=== PATIENT | male | born 2000 | race Caucasian/White ===

== ENCOUNTER 2018-04-20 04:00 | Day surgery (SDC) | payer OTHER ==
[~2018-04-20] VITALS: Ht 190.5 cm; Wt 127.9 kg
[~2018-04-20 04:00] MED LIST: ACET-1966 PO; KEFLEX PO; NAPR220C12 PO
[2018-04-20] MEDS ORDERED: LIDOCAINE MPF 1% 5 ML VIAL ONE (08:15)
[2018-04-20] MEDS ORDERED: DEXAMETHASONE SOD 4 MG/ML VIAL ONE (08:15)
[2018-04-20] MEDS ORDERED: ONDANSETRON 4 MG/2 ML VIAL ONE (08:15)
[2018-04-20] MEDS ORDERED: PROPOFOL EMUL(*) 10MG/ML 20 ML 20 ML ONE ×2 (08:15→09:07)
[2018-04-20] MEDS ORDERED: METOCLOPRAMIDE 10 MG/2 ML SDV ONE (08:15)
[2018-04-20 08:39] VITALS: BP 122/86
[2018-04-20] MEDS ORDERED: NORMOSOL R SOLN(*) 1000 ML BAG 1,000 ML IV PRN (08:50)
[2018-04-20] MEDS ORDERED: MIDAZOLAM 2 MG/2 ML VIAL IVP PRN (08:50)
[2018-04-20] MEDS ORDERED: LIDOCAINE/SOD BICARB 8.4% SYR ID ONE (08:50)
[2018-04-20] MEDS ORDERED: FAMOTIDINE 20 MG TAB PO ONE (08:50)
[2018-04-20] MEDS ORDERED: fentaNYL CITR 100 MCG/2 ML AMP ONE (09:06)
[2018-04-20] MEDS ORDERED: OFLOXACIN 0.3% OP SOLN 5ML BTL ONE (09:34)
[2018-04-20] MEDS ORDERED: OFLO5DRO45 OT (10:40)
[2018-04-20 10:45] VITALS: BP 130/81
--- NOTE | 2018-04-20 11:02 | OPERATIVE REPORT 1 ---
EVENT DATE: April 20, 2018 SURGEON: Ej Thomas Jr., MD ANESTHESIOLOGIST: Mikey Jurado MD ANESTHESIA: LMA PROCEDURE PERFORMED Left myringoplasty with Biodesign patch. PREOPERATIVE DIAGNOSIS Left tympanic membrane perforation. POSTOPERATIVE DIAGNOSIS Left tympanic membrane perforation. INDICATIONS Please refer to the preoperative note. DESCRIPTION OF PROCEDURE The patient was positively identified in the preoperative area. Risks and benefits were explained including, but not limited to, tympanic membrane perforation and those associated with anesthesia. He acknowledged understanding of those risks. He was then brought back to the operating room, laid supine on the operating table and anesthesia was administered. Once asleep, the patient was positioned, prepped and draped in the usual sterile fashion. The microscope was brought into place. Speculum was placed in the left external auditory canal and the tympanic membrane visualized. A perforation was noted in the superior aspect into approximately 10% of the tympanic membrane. The margins were freshened with a pick. The Biodesign graft was placed. Floxin drops were placed. The patient was then returned to Anesthesia for emergence. ESTIMATED BLOOD LOSS Negligible. COMPLICATIONS No complications. MTDElaine
[2018-04-20 11:13] VITALS: BP 122/81
[2018-04-20 11:16] VITALS: BP 123/83
== END 2018-04-20 10:45 | disposition home or self-care (01) ==
LOC: OR 04:00
PROVIDERS: ATTEND Otolaryngology
DX: H72.92 Unspecified perforation of tympanic membrane, left ear (principal)
CPT/HCPCS: 69610; C1763; J2704; J3010; J1100; J2001; J2405; J2765

== ENCOUNTER 2018-07-12 20:14 | Emergency (ER) | payer OTHER ==
[~2018-07-12 20:14] MED LIST changes: +OFLO5DRO45 OT
[2018-07-12 20:21] VITALS: BP 142/111
--- NOTE | 2018-07-12 20:38 | ER Report ---
History and Physical Time Seen By MD: 20:38 Hx. of Stated Complaint: ingrown big toenail on rt foot HPI/ROS CHIEF COMPLAINT: ingrown toenail HISTORY OF PRESENT ILLNESS: 18 year old male presents to ER for right big toe pain. Patient reports he believes it is an ingrown toenail. Patient reports a sharp pain to the medial aspect of the right great big toe, medial to the nail. Pain is worse with walking and pressure to toe, reports 9 out of 10 pain at its worse. Pain decreases when sitting or lying down; reports 3 out of 10 pain at its best. Patient reports pain has been present for 1 week with bleeding and pus coming from site for 3 days. Patient reports hx of repeated ingrown toenails to the lateral aspects of bilateral great big toes approximately 10-12 years ago. Reports he had the nail bed burned and has not had a problem with ingrown toenails since that time. ROS: Constitutional: Denies fatigue, fever. CV: Denies chest pain Resp: Denies SOB MSK: Reports pain, pus, and bleeding to right great toe Allergies: Coded Allergies: No Known Drug Allergies (Verified , 07/12/18) Home Meds Active Scripts Cephalexin 500 Mg Tab (KEFLEX 500 MG TAB) 500 Mg Tablet, 500 MG PO Q6H, #28 TAB Prov:JARON FLORES [employer] 07/12/18 Reported Medications Naproxen Sodium (ALEVE) Unknown Strength Capsule, PO TID PRN for PAIN, CAPSULE 04/02/18 Acetaminophen (TYLENOL) Unknown Strength Tablet, PO, TAB 04/02/18 Past Medical/Surgical History Patient has a past medical history of ruptured eardrum. Patient has surgical history of knee surgery. Patient has a family medical history of CAD, stroke. Reviewed Nurses Notes: Yes Hx Smoking: No Smoking Status: Never Smoker Hx Substance Use Disorder: No Hx Alcohol Use: No Constitutional Vital Sign - Last 24 Hours 07/12/18 20:21 Temp 98.9 Pulse 106 Resp 14 B/P (MAP) 142/111 Pulse Ox 94 O2 Delivery Room Air Physical Exam General appearance: Alert no distress. Respiratory: Chest is non tender, lungs are clear to auscultation. Cardiac: Regular rate and rhythm MSK: Erythema and edema noted to medial aspect of right great toe- medial to the nail bed. Dried blood noted in the medial aspect of the nail bed. Patient reports 9 out of 10 pain with palpation to the medial aspect of right great toe. Denies pain with palpation of the MTP joint and DP joint. Nail bed without s/s of infection. [DIFFERENTIAL DIAGNOSIS: After history and physical exam differential diagnosis was considered for ingrown toenail, toenail infection Medical Decision Making ED Course/Re-evaluation ED Course Patient was admitted to exam room, history and physical were obtained. Differential diagnoses were considered. On examination lungs are clear, heart is regular. Patient does have erythema along the medial aspect of the right great toe. Is tender to touch. Patient would like to have a partial nail avulsion. That was performed as described below. Patient tolerated procedure well. We will go ahead and discharge him home at this time. He did have a dressing placed with bacitracin, Telfa, Kerlix and Coban. Patient tolerated procedure well. He states Tylenol ibuprofen as need for pain. Patient verbalized understanding and agreement plan. Procedure: Partial avulsion of ingrown toenail With patient consent the proximal aspect of the right great toe was cleaned with alcohol and then a digital block was performed using 5 cc of 1% lidocaine and 5 cc of 0.5% Marcaine. The patient stated that he was adequately anesthetized scissors were taken and a cut through the toenail was performed to the medial quarter of the toenail. Then the toenail was gripped with forceps and removed. Patient did have significant ingrown toenail. He was then dressed with bacitracin, Telfa pad, Kerlix and Coban. Patient tolerated procedure well we will go ahead and discharge him home this time. He will be given a dose of Keflex here, and a dose for the morning and then a prescription was sent into his pharmacy. Decision to Disposition Date: Jul 12, 2018 Decision to Disposition Time: 21:30 Depart Departure Latest Vital Signs Vital Signs Date Time Temp Pulse Resp B/P (MAP) Pulse Ox O2 Delivery O2 Flow Rate FiO2 07/12/18 20:21 98.9 106 14 142/111 94 Room Air Impression: Primary Impression: INGROWING NAIL Condition: Improved Disposition: HOME OR SELF-CARE Referrals: DOUGLAS COLE (PCP) New Scripts Cephalexin 500 Mg Tab (KEFLEX 500 MG TAB) 500 Mg Tablet 500 MG PO Q6H, #28 TAB Prov: JARON FLORES 07/12/18 Patient Instructions: Ingrown Nail (ED) Additional Instructions: Limit activity by pain. Get plenty of rest. You may change the dressing as needed. Take Tylenol or Ibuprofen as needed. Return to the ER if condition worsens. Take your medications as directed. Soak your foot daily and pull the skin to the side to allow the track reform. JARON FLORES Jul 12, 2018 20:38
[2018-07-12] MEDS ORDERED: CEPHALEXIN 500 MG CAP TH 2 CAP/BOTTLE PO ONE (21:30)
[2018-07-12] MEDS ORDERED: CEPH500T7 PO (21:31)
== END 2018-07-12 21:43 | disposition home or self-care (01) ==
LOC: ER 20:40
DX: L60.0 Ingrowing nail (principal)
CPT/HCPCS: 99283